=== PATIENT | female | born 1975 | race Caucasian/White ===

== ENCOUNTER 2020-01-25 16:38 | Emergency (ER) | payer OTHER ==
[~2020-01-25] VITALS: Wt 83.9 kg
[2020-01-25 17:21] LABS: BASO % 0.2 % (0.0-1.0); EOS % 0.2 % (1.0-4.0); HEMATOCRIT 37.7 % (37.0-47.0); LYMPH # 0.9 10*3/uL (1.3-4.4); MEAN CELL VOLUME 90.4 fl (81.0-99.0); MEAN CORPUSCULAR HGB 31.4 pg (27.0-31.0); MEAN CORPUSCULAR HGB CONC 34.7 g/dl (33.0-37.0); MEAN PLATELET VOLUME 8.4 fl (9.6-12.3); MONO # 0.4 10*3/uL (0.1-1.0); MONO % 6.5 % (3.0-9.0); NEUT # 5.3 10*3/uL (2.3-7.9); NEUT % 78.9 % (47.0-73.0); PLATELET COUNT AUTOMATED 209 10*3/uL (130-400); RED BLOOD COUNT 4.17 10*6/uL (4.10-5.10); RED CELL DISTRI WIDTH 11.9 % (0-14.5); WHITE BLOOD COUNT 6.7 10*3/uL (4.8-10.8)
[2020-01-25 17:35] LABS: ALBUMIN 4.1 gm/dl (3.1-4.5); CREATININE 1.35 mg/dL (0.55-1.02); POTASSIUM 3.3 mmol/L (3.5-5.1); TOTAL PROTEIN 7.1 gm/dL (6.4-8.2)
[2020-01-25 18:31] LABS: BILIRUBIN Negative; BLOOD Negative (NEGATIVE); CLARITY Clear (CLEAR); COLOR Yellow (YELLOW); GLUCOSE Negative; KETONE Trace; LEUKO ESTERASE 2+ (NEGATIVE); NITRITE Negative (NEGATIVE); PH 6.5 (4.5-8.0); UROBILINOGEN 0.2 E.U./dl (0.0-1.0)
[2020-01-25 18:40] LABS: BACTERIA 1+; MUCOUS 1+; WBC 41-50 wbc/hpf (0-5)
[2020-01-25] MEDS ORDERED: SEPTDS PO (18:51)
[2020-01-25] MEDS ORDERED: PYRIDIUM200 M1 PO (18:51)
[2020-01-25] MEDS ORDERED: IBUPROFEN600 MG PO (18:58)
== END 2020-01-25 19:00 | disposition home or self-care (01) ==
LOC: ED 16:38
PROVIDERS: Physician Assistant
DX: N39.0 Urinary tract infection, site not specified (principal)

== ENCOUNTER 2020-01-30 12:35 | Emergency (ER) | payer OTHER ==
[~2020-01-30] VITALS: Ht 172.7 cm; Wt 72.6 kg
[~2020-01-30 12:35] MED LIST: IBUPROFEN600 MG PO; PYRIDIUM200 M1 PO; SEPTDS PO
[2020-01-30] MEDS ORDERED: NORCO 5-325 TA1 EACH PO (13:14)
[2020-01-30] MEDS ORDERED: PREDNISONE20 M1 PO (13:14)
[2020-01-30] MEDS ORDERED: VALTREX1000 MG PO (13:14)
== END 2020-01-30 13:58 | disposition home or self-care (01) ==
LOC: ED 12:35
DX: B02.9 Zoster without complications (principal); Z79.899 Other long term (current) drug therapy